=== PATIENT | male | born 2000 | race Caucasian/White ===

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

== ENCOUNTER 2022-01-04 12:26 | Emergency (ER) | payer OTHER ==
--- NOTE | 2022-01-04 13:39 | ED Physician Documentation ---
PD HPI UPPER EXT INJURY - Stated complaint Stated Complaint: RT HAND LAC - Chief complaint Chief Complaint: Laceration - History obtained from History obtained from: Patient - History of Present Illness Location: Right, Hand Type of injury: Blunt / blow (was upset and punched mirror, with lacs to mcps from [employer] glass. Denies FBs. normal extension of fingers.) Where injury occurred: Home Timing - onset: How many hours ago (1), Today Timing - details: Abrupt onset, Still present Worsened by: Palpating. No: Moving Associated symptoms: No: Weakness, Numbness, Tingling Similar symptoms before: Has not had sx before Review of Systems Neurologic: denies: Focal weakness, Numbness Psychiatric: denies: Suicidal, Homicidal PD PAST MEDICAL HISTORY - Past Medical History Past Medical History: No - Past Surgical History Past Surgical History: No - Present Medications Home Medications: Ambulatory Orders Medication Instructions Recorded Confirmed Escitalopram Oxalate [Lexapro] 20 mg PO DAILY 01/04/22 01/04/22 - Allergies Allergies/Adverse Reactions: Allergies Allergy/AdvReac Type Severity Reaction Status Date / Time No Known Drug Allergies Allergy Verified 01/04/22 12:38 - Social History Does the pt smoke?: Yes Smoking Status: Current every day smoker Does the pt drink ETOH?: No Does the pt have substance abuse?: No - Immunizations Immunizations are current?: Yes - POLST Patient has POLST: No PD ED PE NORMAL - Vitals Vital signs reviewed: Yes - General General: Alert and oriented X 3, No acute distress (denies current feelings of upset/rage. ), Well developed/nourished - Derm Derm: Normal color, Warm and dry - Extremities Extremities: Other (right hand showing avulsion lac over middle MCP partial to just full thickness. Over the ring finger mCP is a full thickness skin avulsion with 1 cm diameter defect. No FB. Joint capsule nor tendon visible. No FB. Mild bleeding. ) - Neuro Neuro: Alert and oriented X 3, No motor deficit, No sensory deficit, Normal speech Results - Vitals Vitals: Vital Signs - 24 hr 01/04/22 01/04/22 12:34 14:22 Temperature 36.8 C Heart Rate 81 66 Respiratory 16 14 Rate Blood Pressure 97/61 110/58 L O2 Saturation 100 100 Oxygen O2 Source Room air Procedures - Laceration (location) right MCP dorsal Length in cm: 1.5 Wound type: Flap, Into subcut fat, Clean Neurovascular status: Sensory intact, Motor intact Tendon involvement: Tendon intact Anesthesia: Lidocaine 1% with epi Wound preparation: Irrigated copiously NS, Wound explored, To the base Skin layer closure: Nylon, Running, Size #-0 - enter number (4), Sutures - enter # (6) Other: Patient tolerated well, No complications, Neurovascular intact, Dressing applied, Tetanus booster given PD MEDICAL DECISION MAKING - ED course Complexity details: considered differential, d/w patient Departure - Departure Disposition: 01 Home, Self Care Clinical Impression: Hand laceration, Skin avulsion Condition: Stable Record reviewed to determine appropriate education?: Yes Instructions: ED Laceration Hand Comments: It is okay to wash and shower. Clean off the wound twice a day with soap and water, or peroxide and water. Apply some antibiotic ointment to it to keep it moist. Also to watch for signs of infection such as purulence, redness or increasing pain. Return to your primary care or the ER at the specified time for suture removal. Suture removal 8 to 10 days. Tylenol ibuprofen as needed for pains. The area of avulsed skin will actually likely take a little bit longer to heal. Is not as deep so it should heal in without much scarring. The sutured area will heal up with less scarring. Recheck if signs of infection. Activity as tolerated with the hand. You were given a tetanus booster today as had been over 8 years since your last; close enough to 10 years. Discharge Date/Time: 01/04/22 14:22
[2022-01-04] MEDS ORDERED: TETANUS/DIPHTHERIA/PERTUSSIS 0.5 ML SYRINGE IM ONE (14:04)
[2022-01-04 14:23] VITALS: BP 110/58
== END 2022-01-04 14:22 | disposition home or self-care (01) ==
LOC: ED 12:26
DX: S61.411A Laceration without foreign body of right hand, initial encounter (principal); W25.XXXA Contact with sharp glass, initial encounter; W22.8XXA Striking against or struck by other objects, initial encounter; Y93.89 Activity, other specified; Y92.009 Unspecified place in unspecified non-institutional (private) residence as the place of occurrence of the external cause; Z23 Encounter for immunization; F17.200 Nicotine dependence, unspecified, uncomplicated
CPT/HCPCS: 12001; 90471; 99282; 99283

== ENCOUNTER 2023-06-24 23:38 | Emergency (ER) | payer MEDICAID, OTHER ==
[2023-06-24 23:49] VITALS: BP 134/88; O2SAT 99
[2023-06-25] MEDS ORDERED: LIDOCAINE 1%-EPI 1:100000 20 ML MDV ONE (01:09)
--- NOTE | 2023-06-25 01:39 | ED Physician Documentation ---
History of Present Illness - Stated complaint Stated Complaint: L HAND FINGER LAC - Chief complaint Chief Complaint: Laceration - Additonal information Additional information: Patient 22-year-old male presenting the emergency department with laceration on dorsum of left index finger. Her occurred immediately prior to arrival while cleaning dishes. Reports tetanus up-to-date. Review of Systems Constitutional: denies: Fever Eyes: denies: Loss of vision Ears: denies: Loss of hearing Nose: denies: Rhinorrhea / runny nose Throat: denies: Dental pain / toothache Cardiac: denies: Chest pain / pressure Respiratory: denies: Dyspnea GI: denies: Abdominal Pain : denies: Dysuria PD PAST MEDICAL HISTORY - Past Medical History Past Medical History: No - Past Surgical History Past Surgical History: No - Present Medications Home Medications: Ambulatory Orders Medication Instructions Recorded Confirmed hydrOXYzine HCL [Hydroxyzine HCl] 100 mg PO HS 06/25/23 06/25/23 - Allergies Allergies/Adverse Reactions: Allergies Allergy/AdvReac Type Severity Reaction Status Date / Time No Known Drug Allergies Allergy Verified 06/24/23 23:40 - Social History Does the pt smoke?: Yes Smoking Status: Current every day smoker Does the pt drink ETOH?: No Does the pt have substance abuse?: No - Immunizations Immunizations are current?: Yes - POLST Patient has POLST: No PD ED PE NORMAL - General General: Alert and oriented X 3 - HEENT HEENT: Atraumatic - Neck Neck: Supple, no meningeal sign - Respiratory Respiratory: No respiratory distress - Rectal Rectal: Deferred - Extremities Extremities: Other (1 cm laceration on the dorsum of the left index finger overlying the middle and distal phalanx. Flexor digitorum superficialis and profundus are intact. Normal capillary refill and normal sensation distal to the site of injury.) Results - Vitals Vitals: Vital Signs - 24 hr 06/24/23 23:40 Temperature 36.5 C Heart Rate 80 Respiratory 16 Rate Blood Pressure 134/88 H O2 Saturation 99 Oxygen O2 Source Room air Procedures - Laceration (location) Finger left Length in cm: 1 Wound type: Linear Neurovascular status: Sensory intact, Motor intact, Vascular intact Tendon involvement: Tendon intact Anesthesia: Lidocaine 1% with epi, Volume - enter ml (3) Wound preparation: Irrigated copiously NS, Wound explored Skin layer closure: Nylon, Interrupted, Size #-0 - enter number (6), Sutures - enter # (5) Other: Patient tolerated well PD Medical Decision Making - ED course ED course: Patient presents with laceration to the dorsum of his left index finger. No appreciable tendon injury. Neurovascularly intact. Tetanus up-to-date. Wound explored through full range of motion and copiously irrigated with no retained foreign body. Repaired as outlined in procedure note above. Wound care and follow-up instructions given prior to discharge. Departure - Departure Disposition: Home, Self Care Clinical Impression: Laceration Instructions: ED Laceration Hand Comments: Thank you for allowing us to care for you today [facility]. This evening you received 5 stitches to the laceration on your left index finger. These will Need to be removed in 5 to 7 days. Please follow-up with primary care, urgent care or return to the emergency department. I recommend twice daily application of a topical antibiotic ointment such as bacitracin or Neosporin. I recommend daily dressing changes. Gentle rinsing of the site of your injury with warm soapy water is fine but do not scrub the site of your injury and avoid submersion until it is fully healed. Monitor the area carefully for any signs of infection such as increasing swelling, redness, heat. If any of these occur please return to the emergency department.
[2023-06-25] MEDS: LIDOCAINE 1%-EPI 1:100000 20 ML MDV SUBQ ONE (01:47)
[2023-06-25] MEDS: LIDOCAINE 1%-EPI 1:100000 10 ML MDV SUBQ STA (01:51)
== END 2023-06-25 02:05 | disposition home or self-care (01) ==
LOC: ED 23:38
DX: S61.211A Laceration without foreign body of left index finger without damage to nail, initial encounter (principal); W26.9XXA Contact with unspecified sharp object(s), initial encounter; Y93.G1 Activity, food preparation and clean up
CPT/HCPCS: 12001; 99283

== ENCOUNTER 2023-07-06 13:12 | Emergency (ER) | payer MEDICAID ==
--- NOTE | 2023-07-06 13:18 | ED Physician Documentation ---
History of Present Illness - Stated complaint Stated Complaint: STITCH REMOVAL - Chief complaint Chief Complaint: General - Additonal information Additional information: Patient was seen here on 06/24 for sutures to his left middle finger. He is here for suture removal stitches appear to be intact no signs or symptoms of infection wound edges appear to be well-approximated. PD PAST MEDICAL HISTORY - Past Surgical History Past Surgical History: No - Present Medications Home Medications: Ambulatory Orders Medication Instructions Recorded Confirmed hydrOXYzine HCL [Hydroxyzine HCl] 100 mg PO HS 06/25/23 06/25/23 - Allergies Allergies/Adverse Reactions: Allergies Allergy/AdvReac Type Severity Reaction Status Date / Time No Known Drug Allergies Allergy Verified 06/24/23 23:40 - Social History Does the pt smoke?: Yes Smoking Status: Current every day smoker Does the pt drink ETOH?: No Does the pt have substance abuse?: No - Immunizations Immunizations are current?: Yes - POLST Patient has POLST: No PD ED PE NORMAL - Free text exam Free text exam: Right middle finger. About 5 stitches to the right palmar aspect of the middle finger between the DIP and MIP. Wound appears to be well-approximated no er ythema or purulent drainage. Results - Vitals Vitals: Vital Signs - 24 hr 07/06/23 07/06/23 13:15 13:30 Temperature 36.2 C L 36.2 C L Heart Rate 58 L 58 L Respiratory 16 16 Rate Blood Pressure 114/69 114/69 O2 Saturation 100 100 Oxygen O2 Source Room air PD Medical Decision Making - ED course ED course: Nursing was able to remove all sutures without any complications or difficulty. Patient taught signs symptoms of infection and return precautions given safe for discharge. Departure - Departure Disposition: 01 Home, Self Care Clinical Impression: Visit for suture removal Instructions: ED Wound Check Sutr Remove No Infec Comments: Thank you for trusting us with your care. We have removed all the stitches from your left finger there is no other intervention is warranted at this time. Forms: PCP List Discharge Date/Time: 07/06/23 13:31
[2023-07-06 13:22] VITALS: BP 114/69; O2SAT 100
== END 2023-07-06 13:31 | disposition home or self-care (01) ==
LOC: ED 13:12
DX: Z48.02 Encounter for removal of sutures (principal); S61.213D Laceration without foreign body of left middle finger without damage to nail, subsequent encounter; X58.XXXD Exposure to other specified factors, subsequent encounter; F17.200 Nicotine dependence, unspecified, uncomplicated
CPT/HCPCS: 99281; 99282

== ENCOUNTER 2023-07-17 12:21 | Emergency (ER) | payer MEDICAID ==
[2023-07-17 12:51] LABS: BASOPHILS # (AUTO) 0.1 10^3/uL (0.0-0.1); BASOPHILS % (AUTO) 1.1 %; EOSINOPHILS % (AUTO) 0.5 %; HCT - HEMATOCRIT 43.8 % (42.0-52.0); HGB - HEMOGLOBIN 14.2 g/dL (14.0-18.0); LYMPHOCYTES % (AUTO) 23.4 %; MEAN CORPUSCULAR HEMOGLOBIN 28.4 pg (27.0-31.0); MEAN CORPUSCULAR HGB CONC 32.4 g/dL (32.0-36.0); MEAN CORPUSCULAR VOLUME 87.6 fL (80.0-94.0); MEAN PLATELET VOLUME 9.7 fL (7.4-11.4); MONOCYTES # (AUTO) 0.4 10^3/uL (0.0-1.0); MONOCYTES % (AUTO) 4.9 %; NEUTROPHILS # (AUTO) 5.9 10^3/uL (1.5-6.6); NEUTROPHILS % (AUTO) 69.7 %; PLT - PLATELET COUNT 317 10^3/uL (130-450); RED CELL DISTRIBUTION WIDTH 12.1 % (12.0-15.0); WHITE BLOOD COUNT 8.4 x10^3/uL (4.8-10.8)
[2023-07-17 13:04] LABS: ALBUMIN 4.9 g/dL (3.2-5.5); BILIRUBIN,TOTAL 0.4 mg/dL (0.2-1.0); CALCIUM 10.7 mg/dL (8.5-10.3); TOTAL PROTEIN 7.4 g/dL (6.4-8.9)
[2023-07-17 15:51] LABS: BILIRUBIN,URINE NEGATIVE (NEGATIVE); GLUCOSE, URINE (UA) NEGATIVE (NEGATIVE); KETONES,URINE (UA) NEGATIVE (NEGATIVE); LEUKOCYTE ESTERASE, URINE NEGATIVE (NEGATIVE); NITRITE,URINE NEGATIVE (NEGATIVE); OCCULT BLOOD,URINE NEGATIVE (NEGATIVE); PROTEIN,URINE NEGATIVE (NEGATIVE); UROBILINOGEN,URINE 0.2 (NORMAL) E.U./dL (NORMAL)
[2023-07-17 15:53] LABS: CLARITY,URINE CLEAR (CLEAR)
--- NOTE | 2023-07-17 16:06 | ED Physician Documentation ---
History of Present Illness - Stated complaint Stated Complaint: GI,LOW ABD PX - Chief complaint Chief Complaint: Abd Pain - History obtained from History obtained from: Patient - History of Present Illness Timing: Today Pain level max: 2 Pain level now: 2 - Additonal information Additional information: 22 year old male states he had a small amount of yellow discharge from the penis today. States urine looked cloudy. States in a heterosexual relationship with one partner x 3 years concerned about STI. Also states has felt constipated. No changes in sexual partners. No STI exposure that he is aware of. No blood in the urine or blood in the stool. No fevers. No chills. Review of Systems Constitutional: denies: Fever, Chills Respiratory: denies: Cough GI: denies: Nausea, Vomiting, Diarrhea, Hematemesis, Bloody / black stool Skin: denies: Rash Musculoskeletal: denies: Neck pain, Back pain Neurologic: denies: Headache PD PAST MEDICAL HISTORY - Past Medical History Past Medical History: No - Past Surgical History Past Surgical History: No - Present Medications Home Medications: Ambulatory Orders Medication Instructions Recorded Confirmed hydrOXYzine HCL [Hydroxyzine HCl] 100 mg PO HS 06/25/23 07/17/23 - Allergies Allergies/Adverse Reactions: Allergies Allergy/AdvReac Type Severity Reaction Status Date / Time No Known Drug Allergies Allergy Verified 07/17/23 15:45 - Social History Does the pt smoke?: Yes Smoking Status: Current every day smoker Does the pt drink ETOH?: No Does the pt have substance abuse?: No - Immunizations Immunizations are current?: Yes - POLST Patient has POLST: No PD ED PE NORMAL - Vitals Vital signs reviewed: Yes - General General: Alert and oriented X 3, No acute distress, Well developed/nourished - HEENT HEENT: Moist mucous membranes - Abdomen Abdomen: Soft, Non tender, Non distended - Male Male : Other (Normal genitalia exam. No discharge. No inguinal lymphad enopathy. No testicular pain or swelling. No rashes. No ulcerations) - Back Back: No CVA TTP - Derm Derm: Warm and dry - Neuro Neuro: Alert and oriented X 3 - Psych Psych: Normal mood, Normal affect Results - Vitals Vitals: Vital Signs - 24 hr 07/17/23 07/17/23 07/17/23 12:25 14:28 16:32 Temperature 36.4 C L Heart Rate 100 72 74 Respiratory 18 18 18 Rate Blood Pressure 134/78 H 120/92 H 128/82 H O2 Saturation 98 99 98 Oxygen O2 Source Room air - Labs Labs: Laboratory Tests 07/17/23 07/17/23 07/17/23 12:37 12:37 14:02 WBC 8.4 RBC 5.00 Hgb 14.2 Hct 43.8 MCV 87.6 MCH 28.4 MCHC 32.4 RDW 12.1 Plt Count 317 MPV 9.7 Neut # (Auto) 5.9 Lymph # (Auto) 2.0 Pope # (Auto) 0.4 Eos # (Auto) 0.0 Baso # (Auto) 0.1 Absolute Nucleated RBC 0.00 Nucleated RBC % 0.0 Sodium 136 Potassium 4.0 Chloride 98 L Carbon Dioxide 33 H Anion Gap 5.0 L BUN 12 Creatinine 1.0 Estimated GFR (MDRD) 94 Glucose 121 H Calcium 10.7 H Total Bilirubin 0.4 AST 11 ALT 11 Alkaline Phosphatase 68 Total Protein 7.4 Albumin 4.9 Globulin 2.5 Albumin/Globulin Ratio 2.0 Lipase 14 Urine Color YELLOW Urine Clarity CLEAR Urine pH 7.0 Ur Specific Dawn 1.010 Urine Protein NEGATIVE Urine Glucose (UA) NEGATIVE Urine Ketones NEGATIVE Urine Occult Blood NEGATIVE Urine Nitrite NEGATIVE Urine Bilirubin NEGATIVE Urine Urobilinogen 0.2 (NORMAL) Ur Leukocyte Esterase NEGATIVE Ur Microscopic Review NOT INDICATED Urine Culture Comments NOT INDICATED Chlam trachomat DNA PCR N.gonorrhoeae DNA (PCR) T. vaginalis (PCR) 07/17/23 14:02 WBC RBC Hgb Hct MCV MCH MCHC RDW Plt Count MPV Neut # (Auto) Lymph # (Auto) Pope # (Auto) Eos # (Auto) Baso # (Auto) Absolute Nucleated RBC Nucleated RBC % Sodium Potassium Chloride Carbon Dioxide Anion Gap BUN Creatinine Estimated GFR (MDRD) Glucose Calcium Total Bilirubin AST ALT Alkaline Phosphatase Total Protein Albumin Globulin Albumin/Globulin Ratio Lipase Urine Color Urine Clarity Urine pH Ur Specific Dawn Urine Protein Urine Glucose (UA) Urine Ketones Urine Occult Blood Urine Nitrite Urine Bilirubin Urine Urobilinogen Ur Leukocyte Esterase Ur Microscopic Review Urine Culture Comments Chlam trachomat DNA PCR NEGATIVE N.gonorrhoeae DNA (PCR) NEGATIVE T. vaginalis (PCR) NEGATIVE PD Medical Decision Making - ED course Complexity details: reviewed results, re-evaluated patient, considered di fferential, d/w patient ED course: 22-year-old male, mainly concerned about potential STI exposure. Informed her that we do not test for all sexually transmitted infections here and he would need to follow-up with his doctor for full STI testing. Urinalysis does not show any acute abnormalities. STI test for gonorrhea and chlamydia are pending at the time of discharge, the only medication he could not be given at an outside pharmacy would be Rocephin so that was given here. I will call the patient with his results. Patient counseled regarding signs and symptoms for which I believe and urgent re-evaluation would be necessary. Patient with good understanding of and agreement to plan and is comfortable going home at this time This document was made in part using voice recognition software. While efforts are made to proofread this document, sound alike and grammatical errors may occur. I called the patient when his lab results returned. Gonorrhea, chlamydia and trichomonas are negative. Recommend full STI testing including HIV testing with his PCP. Departure - Departure Disposition: 01 Home, Self Care Clinical Impression: Dysuria Condition: Good Instructions: ED Dysuria Uncertain Cause, ED Abdominal Pain Unkn Cause Male Follow-Up: your,doctor in 1 week [Other] Comments: Please follow up with your doctor for full STI testing including HIV testing. I will call you later today with the results from your testing today. Please return if you worsen. Forms: PCP List Discharge Date/Time: 07/17/23 16:32
[2023-07-17] MEDS: cefTRIAXone 1 GM VIAL IM STA (16:22)
[2023-07-17] MEDS: LIDOCAINE 1% 2 ML VIAL MC ONE (16:22)
[2023-07-17 16:41] VITALS: BP 128/82; O2SAT 98
[2023-07-17 20:29] LABS: CHLAMYDIA TRACHOMATIS DNA NEGATIVE (NEGATIVE); NEISSERIA GONORRHOEAE DNA NEGATIVE (NEGATIVE); TRICHOMONAS VAGINALIS DNA NEGATIVE (NEGATIVE)
== END 2023-07-17 16:32 | disposition home or self-care (01) ==
LOC: ED 12:21
DX: R30.0 Dysuria (principal); R36.9 Urethral discharge, unspecified; F17.290 Nicotine dependence, other tobacco product, uncomplicated
CPT/HCPCS: 36415; 80053; 81001; 81003; 83690; 85025; 87086; 87491; 87591; 87661; 96372; 99283; 99284

== ENCOUNTER 2023-07-28 01:22 | Outpatient (CLI) | payer MEDICAID | END 2023-07-28 23:59 | disposition EMS.NT | LOC: EMS 01:22 | DX: R09.89 Other specified symptoms and signs involving the circulatory and respiratory systems (principal) ==